=== PATIENT | male | born 1985 | race Two or more races ===

== ENCOUNTER 2016-09-06 08:34 | Emergency (ER) | payer MEDICAID ==
[~2016-09-06] VITALS: Ht 182.9 cm; Wt 77.1 kg
[2016-09-06] MEDS ORDERED: Albuterol ud Inhalation HHN ONE (09:00)
[2016-09-06] MEDS ORDERED: Azithromycin 250mg tab PO ONE (09:00)
[2016-09-06] MEDS ORDERED: PredniSONE 20mg tab ORAL ONE (09:00)
[2016-09-06] MEDS ORDERED: Ipratropium 0.02% Inh Soln 2.5ml UD HHN ONE (09:00)
[2016-09-06 09:26] VITALS: BP 128/85
[2016-09-06] MEDS ORDERED: AZITHROMYCIN250 MG ORAL (10:59)
[2016-09-06] MEDS ORDERED: ZOFRAN ODT4 MG ORAL (10:59)
[2016-09-06] MEDS ORDERED: PHENERGAN6.25 MG/5 ORAL (10:59)
[2016-09-06] MEDS ORDERED: ALBUTEROL SULF8.5 GM INH (10:59)
[2016-09-06 11:07] VITALS: BP 128/85
--- NOTE | 2016-09-07 00:58 | Emergency Room Report ---
History of Present Illness General Chief Complaint: Dyspnea/Respdistress Source: Patient Present Illness HPI Pt with several weeks of worsened dyspnea with wheezing. States has asthma and ran out of inhaler. Not worst attack. Was vomiting last night and feels weak, but able to tolerate fluids today without vomiting. Not on any medications. No productive cough. No flu vaccine. No diarrhea, chest pain, joint pain, sore throat, headache. No dysuria. Allergies: Coded Allergies: No Known Allergies (Unverified , 09/06/16) Patient History Past Medical History: see triage record Social History: Denies: drug use, smoking Reviewed Nursing Documentation: PMH: Agreed, PSxH: Agreed Nursing Documentation-PMH Past Medical History: No History, Except For Hx Asthma: Yes Review of Systems All Other Systems: negative except mentioned in HPI Physical Exam Vital Signs Date Time Temp Pulse Resp B/P Pulse Ox O2 Delivery O2 Flow Rate FiO2 09/06/16 08:47 98.8 77 22 128/85 99 Room Air 09/06/16 09:05 21 Sp02 EP Interpretation: reviewed, normal General Appearance: well appearing, no apparent distress, GCS 15 Head: normocephalic Eyes: bilateral eye PERRL, bilateral eye normal inspection ENT: normal pharynx, moist mucus membranes Neck: supple Respiratory: no accessory muscle use, wheezing, expiration, inspiration Cardiovascular #1: regular rate, rhythm Cardiovascular #2: 2+ radial (R) Gastrointestinal: normal inspection, normal bowel sounds, non tender, no mass, non-distended Musculoskeletal: back normal, gait/station normal, normal range of motion Neurologic: alert, oriented x3, grossly normal Psychiatric: mood/affect normal Skin: normal inspection, warm/dry Medical Decision Making Diagnostic Impression: Primary Impression: Asthmatic bronchitis Qualified Codes: J45.41 - Moderate persistent asthma with (acute) exacerbation Additional Impression: Vomiting ER Course Patient presents with dyspnea and wheezing. Ddx: pneumonia, asthmatic bronchitis, influenza. States needs breathing treatment. O2 sat precludes need for CXR. Will treat with prednisone and breathing treatments. Patient improved. Discussed recent vomiting and offered IV. Declined. Patient stable for outpatient observation and treatment. Last Vital Signs Date Time Temp Pulse Resp B/P Pulse Ox O2 Delivery O2 Flow Rate FiO2 09/06/16 11:07 98.8 77 18 128/85 99 Room Air 21 Status: improved Disposition: HOME, SELF-CARE Condition: Improved Scripts Promethazine/Dextromethorphan (Promethazine-Dm Syrup) 473 Ml Syrup 1 TSP ORAL Q4H Y for For Cough, #118 ML 0 Refills Prov: Paulo Vo M.D. 09/06/16 Azithromycin* (ZITHROMAX*) 250 Mg Tablet 250 MG ORAL DAILY, #4 TAB Prov: Paulo Vo M.D. 09/06/16 Ondansetron Odt* (ZOFRAN ODT*) 4 Mg Tab.rapdis 4 MG ORAL Q8H Y for Nausea & Vomiting, #6 TAB 1 Refill Prov: Paulo Vo M.D. 09/06/16 Albuterol Sulfate* (ALBUTEROL SULFATE MDI*) 8.5 Gm Hfa.aer.ad 2 PUFF INH Q4H, #1 INH 0 Refills Prov: Paulo Vo M.D. 09/06/16 Patient Instructions: Nausea and Vomiting, Adult, Bronchospasm, Adult Additional Instructions: Return if you are not doing well. Paulo Vo M.D. Sep 07, 2016 00:58
== END 2016-09-06 11:08 | disposition home or self-care (01) ==
LOC: EMR 09:00
DX: J45.41 Moderate persistent asthma with (acute) exacerbation (principal); R11.10 Vomiting, unspecified
CPT/HCPCS: 94640; 94664; 99284; Q0144

== ENCOUNTER 2017-02-11 23:27 | Emergency (ER) | payer MEDICAID ==
[~2017-02-11] VITALS: Ht 182.9 cm; Wt 74.8 kg
[~2017-02-11 23:27] MED LIST: ALBUTEROL SULF8.5 GM INH; AZITHROMYCIN250 MG ORAL; PHENERGAN6.25 MG/5 ORAL; ZOFRAN ODT4 MG ORAL
[2017-02-12] MEDS ORDERED: DOXYCYCLINE MO100 MG ORAL (00:20)
[2017-02-12] MEDS ORDERED: IBUPROFEN600 MG ORAL (00:20)
--- NOTE | 2017-02-12 00:20 | Emergency Room Report ---
History of Present Illness General Chief Complaint: Pain Source: Patient Present Illness HPI Is a 31-year-old male with a history of ingrown toenail before. He had to have surgery to remove it before. He presents with increasing swelling and drainage from the right great toe. Tender to palpation. No fever or chills. No nausea vomiting. Has been ongoing for about a week. Drainage was couple days ago. Allergies: Coded Allergies: No Known Allergies (Unverified , 09/06/16) Patient History Past Medical History: see triage record, old chart reviewed Past Surgical History: none Pertinent Family History: none Social History: Denies: smoking Immunizations: other Reviewed Nursing Documentation: PMH: Agreed, PSxH: Agreed Nursing Documentation-PMH Hx Asthma: Yes Review of Systems Eye: Denies: blurred vision, eye pain ENT: Denies: ear pain, nose congestion, throat swelling Respiratory: Denies: cough, shortness of breath Cardiovascular: Denies: chest pain, palpitations Gastrointestinal: Denies: abdominal pain, diarrhea, nausea, vomiting Musculoskeletal: Denies: back pain, joint pain Skin: Denies: rash Neurological: Denies: headache, numbness Endocrine: Denies: increased thirst, increased urine Hematologic/Lymphatic: Denies: easy bruising All Other Systems: negative except mentioned in HPI Physical Exam Vital Signs Date Time Temp Pulse Resp B/P Pulse Ox O2 Delivery O2 Flow Rate FiO2 02/11/17 23:30 98.2 88 14 125/77 94 vitals normal Sp02 EP Interpretation: reviewed, normal General Appearance: well appearing, no apparent distress, alert Head: normocephalic, atraumatic Eyes: bilateral eye EOMI, bilateral eye PERRL ENT: hearing grossly normal, normal pharynx Neck: full range of motion, supple, no meningismus Respiratory: chest non-tender, lungs clear, normal breath sounds Cardiovascular #1: regular rate, rhythm, no murmur Gastrointestinal: normal bowel sounds, non tender, no mass, no organomegaly, no bruit, non-distended Musculoskeletal: back normal, gait/station normal, normal range of motion, other - left great toe: ingrown nail medially with thicken skin Psychiatric: mood/affect normal Skin: warm/dry Procedures Additional Procedure Procedure Narrative Procedure: Matrextomy Indication: Ingrown toenail Description: Area clean with chlorhexidine. I did a digital block with 1% lidocaine without epinephrine. A total of 3 mL injected. I remove it of the ingrown toenail with a Maegan. Patient tolerated procedure without a problem. Medical Decision Making Diagnostic Impression: Primary Impression: Ingrown left big toenail ER Course patient with an infected of ingrown toenail. We'll discharge on antibiotics. Will followup with his j[employer] hedd[employer] tier. No evidence of deep infection. Last Vital Signs Date Time Temp Pulse Resp B/P Pulse Ox O2 Delivery O2 Flow Rate FiO2 02/11/17 23:30 98.2 88 14 125/77 94 Status: improved Disposition: HOME, SELF-CARE Condition: Stable Scripts Ibuprofen* (MOTRIN*) 600 Mg Tablet 600 MG ORAL Q6H Y for For Pain, #30 TAB Prov: RYAN PERSON M.D. 02/12/17 Doxycycline Monohydrate* (DOXYCYCLINE MONOHYDRATE*) 100 Mg Capsule 100 MG ORAL Q12H, #14 CAP 0 Refills Prov: RYAN PERSON M.D. 02/12/17 Additional Instructions: follow up with your doctor in 7 days. Return if worse. RYAN PERSON M.D. Feb 12, 2017 00:20
[2017-02-12 00:30] VITALS: BP 125/77
== END 2017-02-12 00:30 | disposition home or self-care (01) ==
LOC: EMR 23:40
DX: L60.0 Ingrowing nail (principal); J45.909 Unspecified asthma, uncomplicated

== ENCOUNTER 2017-03-16 18:16 | Emergency (ER) | payer MEDICAID ==
[~2017-03-16] VITALS: Ht 182.9 cm; Wt 78.0 kg
[~2017-03-16 18:16] MED LIST changes: +DOXYCYCLINE MO100 MG ORAL; +IBUPROFEN600 MG ORAL
--- NOTE | 2017-03-16 18:55 | Emergency Room Report ---
History of Present Illness General Chief Complaint: Toothache Source: Patient Present Illness HPI 31-year-old male presents to the emergency department complaining of 10 out of 10 in severity toothache to the molar of the right lower jaw. Patient states pain has been times one day. Patient reports that he has had that tooth broken off at the gumline for almost a year. Patient denies fevers or chills reports some swelling to the right lower cheek. Patient also reports exacerbation of his asthma and that he is out of his inhaler. pt reports wheezing, denies SOB, or recent illness. pt. states he has not seen a dentist in quite some time. pt. denies trauma or fall. Pt. reports nausea, denies vomiting or abdominal pain/ tenderness. Denies CP, Palpitations, LOC, AMS, dizziness, Changes in Vision, Sensation, paresthesias, or a sudden severe headache. Allergies: Coded Allergies: No Known Allergies (Unverified , 09/06/16) Patient History Past Medical History: see triage record Past Surgical History: none Pertinent Family History: none Immunizations: UTD Reviewed Nursing Documentation: PMH: Agreed, PSxH: Agreed Nursing Documentation-PMH Hx Asthma: Yes Review of Systems All Other Systems: negative except mentioned in HPI Physical Exam Vital Signs Date Time Temp Pulse Resp B/P Pulse Ox O2 Delivery O2 Flow Rate FiO2 03/16/17 18:22 98.2 85 16 118/80 98 Room Air Sp02 EP Interpretation: reviewed, normal General Appearance: no apparent distress, alert, GCS 15, non-toxic Head: normocephalic, atraumatic Eyes: bilateral eye PERRL, bilateral eye normal inspection ENT: hearing grossly normal, normal pharynx, no angioedema, normal voice, other - swelling to the lower right jaw line, no palpable fluctuance, tooth number 31 is broken off at the gum line. Neck: full range of motion, supple/symm/no masses Respiratory: lungs clear, normal breath sounds, speaking full sentences, wheezing - scant bilateral wheezes Cardiovascular #1: regular rate, rhythm, no edema Musculoskeletal: back normal, gait/station normal, normal range of motion, non- tender Neurologic: alert, oriented x3, responsive, motor strength/tone normal, sensory intact, speech normal Psychiatric: judgement/insight normal, memory normal, mood/affect normal Skin: normal color, no rash, warm/dry, well hydrated Lymphatic: no adenopathy Medical Decision Making PA Attestation Dr. Francisco is my supervising Physician whom patient management has been discussed with. Diagnostic Impression: Primary Impression: Dental infection Additional Impressions: Medication refill History of asthma ER Course 31-year-old male presents to the emergency department complaining of 10 out of 10 in severity toothache to the molar of the right lower jaw. Patient states pain has been times one day. Patient reports that he has had that tooth broken off at the gumline for almost a year. Patient denies fevers or chills reports some swelling to the right lower cheek. Patient also reports exacerbation of his asthma and that he is out of his inhaler. pt reports wheezing, denies SOB, or recent illness. pt. states he has not seen a dentist in quite some time. pt. denies trauma or fall. Pt. reports nausea, denies vomiting or abdominal pain/ tenderness. Denies CP, Palpitations, LOC, AMS, dizziness, Changes in Vision, Sensation, paresthesias, or a sudden severe headache. Ddx considered but are not limited to cellulitis, dental abscess, orbital cellulitis, d/l tooth, dental pain. trigeminal neuralgia, asthma exacerbation, pneumonia Vital signs: are WNL, pt. is afebrile H&PE are most consistent with dental abscess. swelling to the lower right jaw line, no palpable fluctuance, tooth number 31 is broken off at the gum line. ORDERS: none required at this time, the diagnosis is clinical ED INTERVENTIONS: None required at this time. pt. is given list of dental and primary care clinics for follow up. D/w pt. to return to ED with worsening or new symptoms. DISCHARGE: At this time pt. is stable for d/c to home. Will provide printed patient care instructions, and any necessary prescriptions. Care plan and follow up instructions have been discussed with the patient prior to discharge. Last Vital Signs Date Time Temp Pulse Resp B/P Pulse Ox O2 Delivery O2 Flow Rate FiO2 03/16/17 18:22 98.2 85 16 118/80 98 Room Air Disposition: HOME, SELF-CARE Condition: Stable Scripts Ondansetron Odt* (ZOFRAN ODT*) 4 Mg Tab.rapdis 4 MG ORAL Q6H Y for Nausea & Vomiting, #10 TAB Prov: Callie Mckinley P.Stephanie 03/16/17 Naproxen* (NAPROSYN*) 500 Mg Tablet 500 MG ORAL TWICE A DAY for 10 Days, #20 TAB Prov: Callie Mckinley 03/16/17 Albuterol Sulfate* (ALBUTEROL SULFATE MDI*) 8.5 Gm Hfa.aer.ad 2 PUFF INH Q6H, #1 INH 0 Refills Prov: Callie Mckinley 03/16/17 Amoxicillin* (AMOXIL*) 500 Mg Capsule 500 MG ORAL BID for 7 Days, #14 CAP Prov: Callie Mckinley 03/16/17 Patient Instructions: Dental Abscess, [id number], Medicine Refill at the Emergency Department Additional Instructions: Take medications as directed. Follow up with a Dentist in 3- 5 days, please refer to list of dental clinics if you do not already have a dentist. Also: Follow up with a Primary Care Provider in 3-5 days, even if your symptoms have resolved. --Please review list of primary care clinics, if you do not already have a primary care provider Return sooner to ED if new symptoms occur, or current symptoms become worse. - Please note that this Emergency Department Report was dictated using [employer] fingerprint examiner technology software, occasionally this can lead to erroneous entry secondary to interpretation by the dictation equipment. Callie Mckinley Mar 16, 2017 18:55
[2017-03-16] MEDS ORDERED: ALBUTEROL SULF8.5 GM INH (19:00)
[2017-03-16] MEDS ORDERED: NAPROSYN500 M1 ORAL (19:00)
[2017-03-16] MEDS ORDERED: AMOXICILLIN500 MG ORAL (19:00)
[2017-03-16] MEDS ORDERED: ZOFRAN ODT4 MG ORAL (19:00)
[2017-03-16 19:07] VITALS: BP 118/80
[2017-03-16 19:15] VITALS: BP 118/80
== END 2017-03-16 20:12 | disposition home or self-care (01) ==
LOC: EMR 18:52
DX: K04.7 Periapical abscess without sinus (principal); Z76.0 Encounter for issue of repeat prescription; J45.909 Unspecified asthma, uncomplicated
CPT/HCPCS: 99284

== ENCOUNTER 2017-04-14 21:45 | Emergency (ER) | payer MEDICAID ==
[~2017-04-14] VITALS: Ht 177.8 cm; Wt 59.0 kg
[~2017-04-14 21:45] MED LIST changes: +AMOXICILLIN500 MG ORAL; +NAPROSYN500 M1 ORAL
[2017-04-14 22:04] VITALS: BP 120/70
[2017-04-14] MEDS ORDERED: HYDROCODON-ACE1 EA15 ORAL (22:07)
[2017-04-14] MEDS ORDERED: AMOXICILLIN500 MG ORAL (22:07)
--- NOTE | 2017-04-14 22:07 | Emergency Room Report ---
History of Present Illness General Chief Complaint: Toothache Source: Patient Present Illness HPI Is a 31-year-old male who presents with chief complaint of right jaw pain and toothache. His been ongoing for the last few days. He was here about a month ago for the same thing. Was placed on antibiotics which resolved his symptoms after couple days. He said he lost antibiotics. He denies any fever or chills. Pain is throbbing in nature. 02/20. He called a dental place her ready. Hasn't made an appointment yet. No nausea no vomiting. No fever or chills. No swelling. Allergies: Coded Allergies: No Known Allergies (Unverified , 09/06/16) Patient History Past Medical History: see triage record, old chart reviewed Past Surgical History: none Pertinent Family History: none Social History: Denies: smoking Immunizations: other Reviewed Nursing Documentation: PMH: Agreed, PSxH: Agreed Nursing Documentation-[facility] Past Medical History: No Stated History Hx Asthma: Yes Review of Systems Eye: Denies: eye pain, blurred vision ENT: Denies: ear pain, nose congestion, throat swelling Respiratory: Denies: cough, shortness of breath Cardiovascular: Denies: chest pain, palpitations Gastrointestinal: Denies: abdominal pain, diarrhea, nausea, vomiting Musculoskeletal: Denies: back pain, joint pain Skin: Denies: rash Neurological: Denies: headache, numbness Endocrine: Denies: increased thirst, increased urine Hematologic/Lymphatic: Denies: easy bruising All Other Systems: negative except mentioned in HPI Physical Exam Vital Signs Date Time Temp Pulse Resp B/P (MAP) Pulse Ox O2 Delivery O2 Flow Rate FiO2 04/14/17 21:54 98.4 78 16 120/70 98 Room Air vitals normal Sp02 EP Interpretation: reviewed, normal General Appearance: well appearing, no apparent distress, alert Head: normocephalic, atraumatic Eyes: bilateral eye PERRL, bilateral eye EOMI ENT: hearing grossly normal, normal pharynx, other - Poor dentition. His right lower wisdom tooth is down to the now. Has dental decay. Neck: full range of motion, supple, no meningismus Respiratory: chest non-tender, lungs clear, normal breath sounds Cardiovascular #1: regular rate, rhythm, no murmur Gastrointestinal: normal bowel sounds, non tender, no mass, no organomegaly, no bruit, non-distended Musculoskeletal: back normal, gait/station normal, normal range of motion Psychiatric: mood/affect normal Skin: warm/dry Medical Decision Making Diagnostic Impression: Primary Impression: Dental caries ER Course Patient with a dental infection. No evidence of abscess that can be I&D. We' ll put on antibiotics. We'll discharge him to see a dentist. Last Vital Signs Date Time Temp Pulse Resp B/P (MAP) Pulse Ox O2 Delivery O2 Flow Rate FiO2 04/14/17 21:54 98.4 78 16 120/70 98 Room Air Status: improved Disposition: HOME, SELF-CARE Condition: Stable Scripts Hydrocodone/Acetaminophen 5-325* (HYDROCODONE/ACETAMINOPHEN 5-325*) 1 Each Tablet 1 TAB ORAL Q6H Y for For Pain, #10 TAB 0 Refills Prov: RYAN PERSON M.D. 04/14/17 Amoxicillin* (AMOXIL*) 500 Mg Capsule 500 MG ORAL THREE TIMES A DAY, #21 CAP Prov: RYAN PERSON M.D. 04/14/17 Patient Instructions: Dental Pain Additional Instructions: Followup with your dentist RAYMOND. Return if symptom worsen. RYAN PERSON M.D. Apr 14, 2017 22:07
[2017-04-14] MEDS ORDERED: Norco 5mg/325mg tab ORAL ONE (22:15)
[2017-04-14 22:22] VITALS: BP 120/70
== END 2017-04-14 22:22 | disposition home or self-care (01) ==
LOC: EMR 21:59
DX: K02.9 Dental caries, unspecified (principal); J45.909 Unspecified asthma, uncomplicated
CPT/HCPCS: 99284

== ENCOUNTER 2017-08-09 14:29 | Emergency (ER) | payer MEDICAID ==
[~2017-08-09] VITALS: Ht 182.9 cm; Wt 79.4 kg
[~2017-08-09 14:29] MED LIST changes: +HYDROCODON-ACE1 EA15 ORAL
[2017-08-09] MEDS ORDERED: PREDNISONE2.5 MG ORAL (14:50)
[2017-08-09] MEDS ORDERED: ALBUTEROL SULF8.5 GM INH (14:58)
[2017-08-09] MEDS ORDERED: COMPACT COMPRE1 EACH MC (14:58)
[2017-08-09] MEDS ORDERED: ALBUTEROL2.5 MG/3 M HHN (14:58)
[2017-08-09] MEDS ORDERED: PREDNISONE20 MG ORAL (14:58)
[2017-08-09] MEDS: Ipratropium 0.02% Inh Soln 2.5ml UD HHN SCH ×3 (15:03→15:19)
[2017-08-09] MEDS: Albuterol ud Inhalation HHN SCH ×3 (15:03→15:20)
--- NOTE | 2017-08-09 15:08 | Emergency Room Report ---
History of Present Illness General Chief Complaint: Upper Respiratory Illness Source: Patient Present Illness HPI 32-year-old male with pmhx asthma, intermittent smoker p/w cough for 3 weeks. Pt states cough is productive, with clear non bloody sputum. Also states that his shortness of breath, worse at nighttime. Denies fever chills or chest pain. Denies runny nose or myalgias. No sick contacts or recent travel. Patient states that his asthma is usually will manage, but states that it only gets worse in the winter time, does not have an inhaler at home Allergies: Coded Allergies: No Known Allergies (Unverified , 09/06/16) Patient History Past Medical History: see triage record Past Surgical History: none Pertinent Family History: none Reviewed Nursing Documentation: PMH: Agreed, PSxH: Agreed Nursing Documentation-PMH Hx Asthma: Yes - Bronchitis, Pneumonia Review of Systems All Other Systems: negative except mentioned in HPI Physical Exam Vital Signs Date Time Temp Pulse Resp B/P (MAP) Pulse Ox O2 Delivery O2 Flow Rate FiO2 08/09/17 14:45 98.1 72 22 97 Room Air Sp02 EP Interpretation: reviewed, normal General Appearance: alert, GCS 15, non-toxic, mild distress Head: normocephalic, atraumatic Eyes: bilateral eye normal inspection, bilateral eye PERRL, bilateral eye EOMI ENT: normal ENT inspection, normal pharynx, normal voice, moist mucus membranes Neck: normal inspection, full range of motion, supple Respiratory: other - mild exp wheezing b/l Cardiovascular #1: normal inspection, regular rate, rhythm, normal capillary refill Cardiovascular #2: 2+ radial (R), 2+ radial (L) Gastrointestinal: normal inspection, non tender, soft, non-distended, no guarding Genitourinary: no CVA tenderness Musculoskeletal: normal inspection, back normal, normal range of motion, non- tender Neurologic: normal inspection, alert, oriented x3, responsive, motor strength/ tone normal, sensory intact, normal gait, speech normal Psychiatric: normal inspection, judgement/insight normal, memory normal Skin: normal inspection, normal color, no rash, warm/dry, well hydrated, normal turgor Medical Decision Making Diagnostic Impression: Primary Impression: Upper respiratory infection Additional Impression: Asthma ER Course 32-year-old male with history of asthma p/w SOB DDX: Asthma exacerbation, upper respiratory infection/viral syndrome Plan: Combivent nebulizer treatment x 3, steroids ER Course: Patient has been treated with combivent x 3, steroids, antibiotics. Patient's overall respiratory status has improved in ED. Patient states improvement of symptoms. Patient continues to speak in complete sentences and is not in respiratory distress. Repeat lung auscultation: good air entry with minimal/no wheezing. Disposition: Patient will be discharged to home with course of steroids, albuterol inhaler Strict precautions are discussed with patient on when to emergently return to the ED including: persistent or worsening SOB, chest pain, fever, chills, which could indicate severe illness. Patient verbalized understanding. Patient is to follow up with her/his PMD within 5 days. Patient agrees with plan. Please note that this Emergency Department Report was dictated using [employer] developer intern technology software, occasionally this can lead to erroneous entry secondary to interpretation by the dictation equipment. Last Vital Signs Date Time Temp Pulse Resp B/P (MAP) Pulse Ox O2 Delivery O2 Flow Rate FiO2 08/09/17 14:45 98.1 72 22 97 Room Air Disposition: HOME, SELF-CARE Condition: Improved Scripts Nebulizer (Compact Compressor Nebulizer) 1 Each Each EA , #1 0 Refills Prov: Nathan London.Sebas 08/09/17 Prednisone* (PREDNISONE*) 20 Mg Tablet 40 MG ORAL DAILY for 5 Days, #10 TAB 0 Refills Prov: Nathan London M.D. 08/09/17 Albuterol Sulfate* (ALBUTEROL SULFATE HHN*) 2.5 Mg/3 Ml Vial.neb 2.5 MG HHN Q4H Y for Shortness of Breath, #25 VIAL 0 Refills Prov: Nathan London M.D. 08/09/17 Albuterol Sulfate* (ALBUTEROL SULFATE MDI*) 8.5 Gm Hfa.aer.ad 2 PUFF INH Q4H Y for cough/wheezing, #1 EA 0 Refills Prov: Nathan London.DRene 08/09/17 Patient Instructions: Upper Respiratory Infection, Adult, Asthma, Adult, Easy- to-Read Nathan London M.D. Aug 09, 2017 15:08
[2017-08-09] MEDS ORDERED: TESSALON PERLE100 MG ORAL (15:31)
[2017-08-09 16:45] VITALS: BP 122/72
== END 2017-08-09 16:45 | disposition home or self-care (01) ==
LOC: EMR 15:18
DX: J06.9 Acute upper respiratory infection, unspecified (principal); J45.909 Unspecified asthma, uncomplicated
CPT/HCPCS: 94664; 99283; J7512

== ENCOUNTER 2018-05-01 19:37 | Emergency (ER) | payer MEDICAID ==
[~2018-05-01] VITALS: Ht 182.9 cm; Wt 77.1 kg
[~2018-05-01 19:37] MED LIST changes: +ALBUTEROL2.5 MG/3 M HHN; +COMPACT COMPRE1 EACH MC; +PREDNISONE2.5 MG ORAL; +PREDNISONE20 MG ORAL; +TESSALON PERLE100 MG ORAL
[2018-05-01 19:55] VITALS: BP 105/65
[2018-05-01] MEDS ORDERED: Albuterol/Ipratropium 3ml neb HHN ONE (20:15)
--- NOTE | 2018-05-01 20:37 | Emergency Room Report ---
History of Present Illness General Chief Complaint: Asthma Source: Patient Present Illness HPI Patient is a 32-year-old male presented after increased difficulty breathing. Patient gradual onset of symptoms. He had prior history of asthma. Patient reports smoking once a day. The patient was having increased activity. He denies any fever. He had nonproductive cough. Allergies: Coded Allergies: No Known Allergies (Unverified , 09/06/16) Patient History Past Medical History: see triage record Reviewed Nursing Documentation: PMH: Agreed; PSxH: Agreed Nursing Documentation-PMH Hx Asthma: Yes - Bronchitis, Pneumonia Review of Systems All Other Systems: negative except mentioned in HPI Physical Exam Vital Signs Date Time Temp Pulse Resp B/P (MAP) Pulse Ox O2 Delivery O2 Flow Rate FiO2 05/01/18 19:40 98.4 83 18 134/77 97 Room Air 98.4 05/01/18 20:10 21 General Appearance: well appearing, no apparent distress, alert, GCS 15, non- toxic Head: normocephalic, atraumatic ENT: hearing grossly normal, normal voice Neck: full range of motion, supple Respiratory: no respiratory distress, speaking full sentences, wheezing Cardiovascular #1: normal inspection, regular rate, rhythm Gastrointestinal: normal inspection Musculoskeletal: normal inspection, no calf tenderness Neurologic: normal inspection, alert, oriented x3, responsive, neuropsychiatrist III-XII nml as tested, normal gait Psychiatric: mood/affect normal Skin: no rash Medical Decision Making Diagnostic Impression: Primary Impression: Asthmatic bronchitis ER Course The patient presented for cough and difficulty breathing. Difficult differential diagnosis included bronchitis, pneumonia, asthma, foreign body, pertussis among others. The patient was given breathing treatments with with improvement in respiratory status. A repeat exam showed diminished wheezing. The patient was given prescription for oral steroids as well as albuterol . Patient was advised smoking cessation. Patient was advised followup with primary care physician for reevaluation one to 2 days. Patient was to return for increased productive cough, hemoptysis, increased difficulty breathing or other concerns Last Vital Signs Date Time Temp Pulse Resp B/P (MAP) Pulse Ox O2 Delivery O2 Flow Rate FiO2 05/01/18 20:19 74 20 100 Room Air 21 05/01/18 19:55 98.4 105/65 98.4 Status: improved Disposition: HOME, SELF-CARE Condition: Stable Scripts Prednisone* (PREDNISONE*) 20 Mg Tablet 40 MG ORAL DAILY for 5 Days, #10 TAB 0 Refills Prov: Thomas Griffin MD 05/01/18 Albuterol Sulfate* (ALBUTEROL SULFATE MDI*) 8.5 Gm Hfa.aer.ad 2 PUFF INH Q4H PRN for cough/wheezing, #1 EA 0 Refills Prov: Thomas Griffin MD 05/01/18 Thomas Griffin MD May 01, 2018 20:36
[2018-05-01] MEDS ORDERED: PREDNISONE20 MG ORAL (20:41)
[2018-05-01] MEDS ORDERED: ALBUTEROL SULF8.5 GM INH (20:41)
== END 2018-05-01 20:50 | disposition home or self-care (01) ==
LOC: EMR 20:47
DX: J45.901 Unspecified asthma with (acute) exacerbation (principal)
CPT/HCPCS: 94640; 94664; 99284; J7512; J7620

== ENCOUNTER 2018-06-24 07:39 | Emergency (ER) | payer MEDICAID ==
[~2018-06-24] VITALS: Ht 182.9 cm; Wt 74.8 kg
[2018-06-24 07:51] VITALS: BP 141/83
--- NOTE | 2018-06-24 08:14 | Emergency Room Report ---
History of Present Illness General Chief Complaint: Skin Rash/Abscess Source: Patient Present Illness HPI Patient presents with complaints of rash diffusely Started yesterday Patient has itching with this denies any fevers denies any chest pain or shortness of breath Denies any cough denies any vomiting or diarrhea Patient is unclear exactly what could've started the rash denies any new medications denies any change in sleeping habits Allergies: Coded Allergies: No Known Allergies (Unverified , 09/06/16) Patient History Past Medical History: see triage record Pertinent Family History: none Reviewed Nursing Documentation: PMH: Agreed; PSxH: Agreed Nursing Documentation-PMH Past Medical History: No History, Except For Hx Asthma: Yes - Bronchitis, Pneumonia Review of Systems All Other Systems: negative except mentioned in HPI Physical Exam Vital Signs Date Time Temp Pulse Resp B/P (MAP) Pulse Ox O2 Delivery O2 Flow Rate FiO2 06/24/18 07:40 97.3 68 18 141/83 99 Room Air Sp02 EP Interpretation: reviewed, normal General Appearance: well appearing, no apparent distress Head: normocephalic, atraumatic Eyes: bilateral eye PERRL, bilateral eye EOMI ENT: hearing grossly normal, normal pharynx, TMs + canals normal, uvula midline Neck: full range of motion, supple, no meningismus, no bony tend Respiratory: lungs clear, normal breath sounds, no rhonchi, no respiratory distress, no retraction, no accessory muscle use Cardiovascular #1: normal peripheral pulses, regular rate, rhythm, no edema, no gallop, no JVD, no murmur Gastrointestinal: normal bowel sounds, non tender, soft, no mass, no organomegaly, non-distended, no guarding, no hernia, no pulsatile mass, no rebound Genitourinary: no CVA tenderness Musculoskeletal: normal inspection Neurologic: oriented x3, responsive, engineering coordinator III-XII nml as tested, motor strength/ tone normal, sensory intact Psychiatric: mood/affect normal Skin: other - Patient has urticarial rash involving the chest back, upper arm area, no obvious dermatomal spread, no petechiae Lymphatic: normal inspection, no adenopathy Medical Decision Making Diagnostic Impression: Primary Impression: Rash and other nonspecific skin eruption ER Course Given the exam there is not a specific Ideology of the rash no obvious airway involvement patient is symptomatically treated at this time And is stable for close outpatient follow-up Last Vital Signs Date Time Temp Pulse Resp B/P (MAP) Pulse Ox O2 Delivery O2 Flow Rate FiO2 06/24/18 07:51 97.3 18 141/83 99 Room Air 06/24/18 07:40 68 Status: improved Disposition: HOME, SELF-CARE Condition: Improved Scripts Famotidine (PEPCID AC) 20 Mg Tablet 20 MG PO DAILY for 7 Days, TAB Prov: Felipe Tejada DO 06/24/18 Diphenhydramine Hcl* (BENADRYL*) 25 Mg Capsule 25 MG ORAL Q6H PRN for Itching for 7 Days, CAP Prov: Felipe Tejada DO 06/24/18 Prednisone* (PREDNISONE*) 20 Mg Tablet 20 MG ORAL BID, #10 TAB Prov: Felipe Tejada DO 06/24/18 Referrals: STAR OJEDA,REFERRING (PCP) Additional Instructions: Patient is provided with the discharge instructions notified to follow up with primary doctor in the next 2-3 days otherwise return to the er with any worsening symptoms. Please note that this report is being documented using [employer] Trader technology. This can lead to erroneous entry secondary to incorrect interpretation by the dictating instrument. Felipe Tejada DO Jun 24, 2018 08:14
[2018-06-24] MEDS ORDERED: PREDNISONE20 MG ORAL (08:15)
[2018-06-24] MEDS ORDERED: PEPCID AC20 M2 PO (08:15)
[2018-06-24] MEDS ORDERED: BENADRYL25 MG ORAL (08:15)
[2018-06-24 08:24] VITALS: BP 141/83
== END 2018-06-24 08:23 | disposition home or self-care (01) ==
LOC: EMR 07:53
DX: R21 Rash and other nonspecific skin eruption (principal)
CPT/HCPCS: 99282; J7512

== ENCOUNTER 2018-09-12 17:03 | Emergency (ER) | payer MEDICAID ==
[~2018-09-12] VITALS: Ht 182.9 cm; Wt 77.1 kg
[~2018-09-12 17:03] MED LIST changes: +BENADRYL25 MG ORAL; +PEPCID AC20 M2 PO
--- NOTE | 2018-09-12 17:06 | NUR ---
ED Nurse Note: Patient walked into ED from home, c/o right hand pain, patient reports that he hit the wall and hit his hand about 2 weeks ago. a/o x4, ambulatory
[2018-09-12] MEDS ORDERED: NKM (17:10)
--- NOTE | 2018-09-12 17:22 | Emergency Room Report ---
History of Present Illness General Chief Complaint: Upper Extremity Injury Source: Patient Present Illness HPI 33-year-old male patient presents the ER complaining of right hand pain times 1 month. Reports that a month ago "around [place]" he punched a wall. Reports mild swelling and pain symptoms intermittently since that time. Reports he decided to come to the ER today because the pain symptoms increased with movement. Reports he is left-hand dominant. Reports not taking medication for relief of symptoms. Reports he has not had any imaging done. Denies numbness or tingling. Denies other aggravating or relieving factors. Reports that he reinjured the hand when he hit a dresser 2 weeks ago. Allergies: Coded Allergies: No Known Allergies (Unverified , 09/06/16) Patient History Past Medical History: see triage record Reviewed Nursing Documentation: PMH: Agreed; PSxH: Agreed Nursing Documentation-PMH Past Medical History: No History, Except For Hx Asthma: Yes - Bronchitis, Pneumonia Review of Systems All Other Systems: negative except mentioned in HPI Physical Exam Vital Signs Date Time Temp Pulse Resp B/P (MAP) Pulse Ox O2 Delivery O2 Flow Rate FiO2 09/12/18 17:06 98.4 75 16 121/83 99 Room Air Sp02 EP Interpretation: reviewed, normal General Appearance: well appearing, no apparent distress, alert, GCS 15, non- toxic Head: normocephalic, atraumatic Eyes: bilateral eye normal inspection, bilateral eye PERRL ENT: hearing grossly normal, normal pharynx, no angioedema, normal voice, uvula midline, moist mucus membranes Neck: full range of motion Respiratory: lungs clear, normal breath sounds, no rhonchi, no respiratory distress, no accessory muscle use, no wheezing, speaking full sentences Cardiovascular #1: regular rate, rhythm, no edema Musculoskeletal: back normal, digits/nails normal, gait/station normal, normal range of motion, swelling - Mild on dorsum of right hand, other - Able to make a fist,NVI, cap refill less than 2 seconds, no ecchymosis, no erythema, no warmth to touch, tender - Dorsum of fifth metacarpal proximal to the MCP joint Neurologic: alert, oriented x3, responsive, motor strength/tone normal, sensory intact Psychiatric: mood/affect normal Skin: no rash Lymphatic: no adenopathy Medical Decision Making PA Attestation Dr. Griffin is my supervising Physician whom patient management has been discussed with. Diagnostic Impression: Primary Impression: Hand contusion ER Course Pt. presents to the ED c/o right hand pain times 1 month. Ddx considered but are not limited to fracture, sprain, strain, contusion, dislocation. No erythema, no warmth to touch, no fever, nontoxic appearing, low suspicion for septic joint. Soft compartments, no pulselessness, no pallor, no paresthesias, low suspicion for compartment syndrome at this time. Vital signs: are WNL, pt. is afebrile Ordered X-ray and pain medication. ER COURSE Provided with pain medication. An X-ray of the right hand shows no acute fracture per the preliminary reading. Likely contusion causing pain symptoms. KEVIN wrap applied to right hand. Checked afterwards by me showing good alignment and NVI. Patient instructed on RICE method: rest, ice, compression, elevation. Patient instructed on rest, ice and heat. Patient instructed to be WBAT Contact information for orthopedic urgent care provided, follow-up with urgent care if unable to followup with primary care provider and get referral to acoustic intelligence specialist. Followup with primary care provider. Discuss referral to ortho/pain management/ PT as needed. Discuss further imaging with MRI/CT as needed. DISCHARGE: -Rx provided for Ibuprofen for pain symptoms. At this time pt. is stable for d/c to home. Patient is resting comfortably, in no acute distress, nontoxic appearing, talking without difficulty. Will provide printed patient care instructions, and any necessary prescriptions. Patient instructed to follow with primary care provider in 3 - 5 days and to request further follow-up as needed. Care plan and follow up instructions have been discussed with the patient prior to discharge. Take medications as directed. Patient questions asked and answered. Patient reports understanding and agreement to treatment plan. ER precautions given, patient instructed to return to ER immediately for any new or worsening of symptoms. - Please note that this Emergency Department Report was dictated using [employer] medical transcriptionist technology software, occasionally this can lead to erroneous entry secondary to interpretation by the dictation equipment. Other X-Ray Diagnostic Results Other X-Ray Diagnostic Results : X-Ray ordered: right hand # of Views/Limited Vs Complete: 3 View Indication: Pain EP Interpretation: Yes PA Xray: Interpretation reviewed, by supervising MD, and agrees with findings. Interpretation: no dislocation, no soft tissue swelling, no fractures Impression: No acute disease PA Scribe Text Cam Garcia PA-C Last Vital Signs Date Time Temp Pulse Resp B/P (MAP) Pulse Ox O2 Delivery O2 Flow Rate FiO2 09/12/18 17:06 98.4 75 16 121/83 99 Room Air Status: improved Disposition: HOME, SELF-CARE Condition: Stable Scripts Ibuprofen* (MOTRIN*) 600 Mg Tablet 600 MG ORAL Q8H PRN for For Pain, #30 TAB 0 Refills Prov: Jake Garcia 09/12/18 Patient Instructions: Hand Contusion, [id number] Additional Instructions: Patient instructed to follow up with primary care provider and discuss further referral to orthopedics/physical therapy/pain management as needed. If unable to followup with PCP, followup with orthopedic urgent care in 5-7 days , call to schedule appointment. Patient instructed on RICE method: rest, ice, compression, elevation. Patient instructed to WBAT. Take medications as directed. Patient questions asked and answered. ER precautions given, patient instructed to return to ER immediately for any new or worsening of symptoms. [facility] [address] [facility] [address] [facility], [address] [email or web address] Jake Garcia Sep 12, 2018 17:22
[2018-09-12 17:35] VITALS: BP 121/83
[2018-09-12] MEDS ORDERED: IBUPROFEN600 MG ORAL (18:08)
--- NOTE | 2018-09-12 18:14 | NUR ---
ED Nurse Note: Pt is cleared for discharge per ER PA Discharge instrcution/paper/ prescription given and explained to the patient, patient verbalized understanding. pt is alert and oriented x4, ambulated out of ED steady gait with all belongigns. pt is stable for DC. VSS. pt ID band removed.
[2018-09-12 19:09] VITALS: BP 121/83
--- NOTE | 2018-09-13 09:13 | Diagnostic Imaging Report ---
Indication: Right hand pain Technique: 3 views right hand Comparison: none Findings: No acute fractures. No dislocations. The joint spaces are preserved Impression: Negative
== END 2018-09-12 18:14 | disposition home or self-care (01) ==
LOC: EMR 17:33
DX: S60.221A Contusion of right hand, initial encounter (principal); W22.01XA Walked into wall, initial encounter; Y92.89 Other specified places as the place of occurrence of the external cause; J45.909 Unspecified asthma, uncomplicated; F17.200 Nicotine dependence, unspecified, uncomplicated
CPT/HCPCS: 99283

== ENCOUNTER 2018-10-05 21:45 | Emergency (ER) | payer MEDICAID ==
[~2018-10-05] VITALS: Ht 182.9 cm; Wt 77.1 kg
[~2018-10-05 21:45] MED LIST changes: +NKM
--- NOTE | 2018-10-05 21:55 | NUR ---
ED Nurse Note: Patient walk in c/o right shoulder pain for 2 days. Patient states he was carrying a heavy object and felt his shoulder become dislocated. Patient states he put the shoulder back in place but still has pain 03/23. Per pt he took motrin earlier this morning to alleviate pain, did not help
[2018-10-05 21:57] VITALS: BP 133/65
[2018-10-05] MEDS ORDERED: MOBIC15 MG ORAL (22:11)
[2018-10-05] MEDS ORDERED: HYDROCODON-ACE1 EA15 ORAL (22:11)
--- NOTE | 2018-10-05 22:11 | Emergency Room Report ---
History of Present Illness General Chief Complaint: Upper Extremity Injury Source: Patient Present Illness [facility] This is a 33-year-old male with no past mental history. 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 He presents with right shoulder pain. 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 Patient held onto the furniture. He felt his shoulder dislocated. He said he popped it back himself. It occurred again that same night. Since then he complaining of right shoulder pain. His been taking [id number] medicine without much help. No fever chills but no nausea no vomiting. Worse with movement. No other complaint. Allergies: Coded Allergies: No Known Allergies (Unverified , 09/06/16) Patient History Past Medical History: see triage record, old chart reviewed, asthma Past Surgical History: other Pertinent Family History: none Social History: Denies: smoking Immunizations: other Reviewed Nursing Documentation: PMH: Agreed; PSxH: Agreed Nursing Documentation-PMH Past Medical History: No History, Except For Hx Asthma: Yes - Bronchitis, Pneumonia Review of Systems Eye: Denies: eye pain, blurred vision ENT: Denies: ear pain, nose congestion, throat swelling Respiratory: Denies: cough, shortness of breath Cardiovascular: Denies: chest pain, palpitations Gastrointestinal: Denies: abdominal pain, diarrhea, nausea, vomiting Musculoskeletal: Reports: joint pain; Denies: back pain Skin: Denies: rash Neurological: Denies: headache, numbness Endocrine: Denies: increased thirst, increased urine Hematologic/Lymphatic: Denies: easy bruising All Other Systems: negative except mentioned in HPI Physical Exam Vital Signs Date Time Temp Pulse Resp B/P (MAP) Pulse Ox O2 Delivery O2 Flow Rate FiO2 10/05/18 21:51 98.1 85 16 133/65 98 Room Air vitals normal Sp02 EP Interpretation: reviewed, normal General Appearance: well appearing, no apparent distress, alert Head: normocephalic, atraumatic Eyes: bilateral eye PERRL, bilateral eye EOMI ENT: hearing grossly normal, normal pharynx Neck: full range of motion, supple, no meningismus Respiratory: chest non-tender, lungs clear, normal breath sounds Cardiovascular #1: regular rate, rhythm, no murmur Gastrointestinal: normal bowel sounds, non tender, no mass, no organomegaly, no bruit, non-distended Musculoskeletal: back normal, gait/station normal, normal range of motion, other - Right Shoulder: No deformity. Diffuse tenderness. Sensation over deltoid normal. Psychiatric: mood/affect normal Skin: warm/dry Procedures Splinting Splinting : Consent: Verbal Location: Right shoulder Pre-Made Type: Sling Pre-Proc Neuro Vasc Exam: normal Post-Proc Neuro Vasc Exam: normal Patient Tolerated: Well Complications: None Medical Decision Making Diagnostic Impression: Primary Impression: Right shoulder injury Qualified Codes: S49.91XA - Unspecified injury of right shoulder and upper arm , initial encounter ER Course Patient with right shoulder injury with reported injury or dislocation with reduction by patient. No evidence of any fracture dislocation here. Patient given a sling and pain medication. We'll discharge home with orthopedic follow- up. He said that he does not want to file [employer] paper works. 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 Other X-Ray Diagnostic Results Other X-Ray Diagnostic Results : X-Ray ordered: Right shoulder x-rays # of Views/Limited Vs Complete: 3 View Indication: Pain EP Interpretation: Yes Interpretation: no dislocation, no soft tissue swelling, no fractures Impression: No acute disease Electronically Signed by: Guru Cary MD Last Vital Signs Date Time Temp Pulse Resp B/P (MAP) Pulse Ox O2 Delivery O2 Flow Rate FiO2 10/05/18 21:57 98.1 95 16 133/65 98 Room Air Status: improved Disposition: HOME, SELF-CARE Condition: Stable Scripts Hydrocodone/Acetaminophen 5-325* (HYDROCODONE/ACETAMINOPHEN 5-325*) 1 Each Tablet 1 TAB ORAL Q6H PRN for For Pain, #10 TAB 0 Refills Prov: Guru Cary MD 10/05/18 Meloxicam* (MOBIC*) 15 Mg Tablet 15 MG ORAL DAILY, #30 TAB 0 Refills Prov: Guru Cary MD 10/05/18 Additional Instructions: Follow-up with your doctor in 7 days. Return if symptom worsen. Guru Cary MD Oct 05, 2018 22:11
[2018-10-05] MEDS ORDERED: Norco 5mg/325mg tab ORAL ONE (22:15)
[2018-10-05 22:28] VITALS: BP 133/65
--- NOTE | 2018-10-05 22:28 | NUR ---
ER NURSE NOTE: Patient is cleared to be discharged per ERMD, pt is aox4, on room air, with stable vital signs. pt was given dc and prescription instructions, pt was able to verbalize understanding, pt id band. pt is able to ambulate with steady gait. pt took all belongings.
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
--- NOTE | 2018-10-05 22:34 | NUR ---
Note jordan in EDM - 10/05/18 at 2234 by DARCY ER NURSE NOTE: Patient is cleared to be discharged per ERMD, pt is aox4, on room air, with stable vital signs. pt was given dc and prescription instructions, pt was able to verbalize understanding, pt id band. pt is able to ambulate with steady gait. pt took all belongings.
== END 2018-10-05 22:28 | disposition home or self-care (01) ==
LOC: EMR 22:18
DX: S49.81XA Other specified injuries of right shoulder and upper arm, initial encounter (principal); X50.0XXA Overexertion from strenuous movement or load, initial encounter; Y92.89 Other specified places as the place of occurrence of the external cause
CPT/HCPCS: 29105; 99283

== ENCOUNTER 2019-01-29 12:06 | Emergency (ER) | payer MEDICAID ==
[~2019-01-29] VITALS: Ht 182.9 cm; Wt 74.8 kg
[~2019-01-29 12:06] MED LIST changes: +MOBIC15 MG ORAL
[2019-01-29 12:10] VITALS: BP 127/86
--- NOTE | 2019-01-29 12:47 | Emergency Room Report ---
History of Present Illness General Chief Complaint: Upper Respiratory Illness Source: Medical Record Present Illness HPI 33-year-old male with history of asthma here complaining of asthma exacerbation x2 days after he was exposed to exhaust at work 2 days ago. 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 Denies nausea vomiting, syncope, chest pain, palpitation , cough. Complains of minor shortness of breath and has been using his albuterol inhaler he is here requesting nebulizer treatment. Patient denies all other URI symptoms denies abdominal pain, fever and chills, and all other associated symptoms. Patient is a non-smoker Allergies: Coded Allergies: No Known Allergies (Unverified , 09/06/16) Patient History Past Medical History: see triage record Past Surgical History: unable to obtain Pertinent Family History: none Reviewed Nursing Documentation: PMH: Agreed; PSxH: Agreed Nursing Documentation-PMH Past Medical History: No History, Except For Hx Asthma: Yes - Bronchitis, Pneumonia Review of Systems All Other Systems: negative except mentioned in HPI Physical Exam Vital Signs Date Time Temp Pulse Resp B/P (MAP) Pulse Ox O2 Delivery O2 Flow Rate FiO2 01/29/19 12:09 98.2 69 18 127/86 (100) 96 Room Air Sp02 EP Interpretation: reviewed, normal General Appearance: normal inspection, well appearing, no apparent distress, alert, GCS 15 Head: normocephalic, atraumatic Eyes: bilateral eye normal inspection, bilateral eye PERRL ENT: normal ENT inspection, normal pharynx Neck: normal inspection, full range of motion, supple, thyroid normal, no carotid bruits Respiratory: chest non-tender, lungs clear, normal breath sounds, no rhonchi, no wheezing Cardiovascular #1: normal inspection, regular rate, rhythm, no gallop, no murmur Gastrointestinal: normal inspection, normal bowel sounds, soft, no mass Genitourinary: no CVA tenderness Musculoskeletal: normal inspection, back normal Neurologic: normal inspection, alert, oriented x3, responsive Psychiatric: normal inspection, judgement/insight normal Skin: normal inspection, normal color, no rash, warm/dry Lymphatic: normal inspection, no adenopathy Medical Decision Making PA Attestation All my diagnosis and treatment plans were reviewed ad discussed with my supervising physician Dr. Fernando Diagnostic Impression: Primary Impression: Asthma exacerbation ER Course 33-year-old male with history of asthma here complaining of asthma exacerbation x2 days after he was exposed to exhaust at work 2 days ago. 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 Denies nausea vomiting, syncope, chest pain, palpitation , cough. Complains of minor shortness of breath and has been using his albuterol inhaler he is here requesting nebulizer treatment. Patient denies all other URI symptoms denies abdominal pain, fever and chills, and all other associated symptoms. Patient is a non-smoker Ddx considered but are not limited to: bronchitis, PNA, URI viral, bacterial brochitis , asthma exacerbation Vital signs: are WNL, pt. is afebrile H&PE are most consistent with: Asthma exacerbation ORDERS: Albuterol inhaler, albuterol nebulizer, Medrol Dosepak patient to purchase a nebulizer mask. ED INTERVENTIONS: None required at this time. DISCHARGE: At this time pt. is stable for d/c to home. Will provide printed patient care instructions, and any necessary prescriptions. Care plan and follow up instructions have been discussed with the patient prior to discharge. Follow-up with your primary care provider for better management of asthma. Avoid exposure to irritants and allergens. Wear your mask at work. Last Vital Signs Date Time Temp Pulse Resp B/P (MAP) Pulse Ox O2 Delivery O2 Flow Rate FiO2 01/29/19 12:09 98.2 69 18 127/86 (100) 96 Room Air Disposition: HOME, SELF-CARE Condition: Stable Scripts Methylprednisolone (Methylprednisolone*) 4MG Dspk 4 MG ORAL DIRECTED for 6 Days, #21 EA 0 Refills Day 1: Two tablets before breakfast, one after lunch, one after dinner, and two at bedtime. If started late in the day, take all six tablets at once or divide into two or three doses, unless otherwise directed by prescriber. Day 2: One tablet before breakfast, one after lunch, one after dinner, and two at bedtime Day 3: One tablet before breakfast, one after lunch, one after dinner, and one at bedtime Day 4: One tablet before breakfast, one after lunch, and one at bedtime Day 5: One tablet before breakfast and one at bedtime Day 6: One tablet before breakfast Prov: Sima Pascual 01/29/19 Albuterol Sulfate (VENTOLIN HFA) 18 Gm Hfa.aer.ad 2 PUFFS INH EVERY 6 HOURS, #18 GM 0 Refills Prov: Sima Pascual 01/29/19 Albuterol Sulfate* (ALBUTEROL SULFATE HHN*) 2.5 Mg/3 Ml Vial.neb 3 ML INH Q6H PRN for Shortness of Breath, #30 EA 0 Refills Prov: Sima Pascual 01/29/19 Patient Instructions: Asthma, Adult, Anip-at-Oqip Additional Instructions: Avoid exposure to allergens follow-up with a primary care provider take medication as directed Sima Pascual Jan 29, 2019 12:47
[2019-01-29] MEDS ORDERED: VENTOLIN HFA18 GM INH (12:48)
[2019-01-29] MEDS ORDERED: ALBUTEROL2.5 MG/3 M INH (12:48)
[2019-01-29] MEDS ORDERED: MEDROL DOSEPAK4 MG ORAL (12:48)
[2019-01-29 12:54] VITALS: BP 127/86
== END 2019-01-29 12:54 | disposition home or self-care (01) ==
LOC: EMR 12:50
DX: J45.901 Unspecified asthma with (acute) exacerbation (principal)
CPT/HCPCS: 99282

== ENCOUNTER 2019-08-30 19:31 | Emergency (ER) | payer SELFPAY ==
[~2019-08-30] VITALS: Ht 177.8 cm; Wt 77.1 kg
[~2019-08-30 19:31] MED LIST changes: +ALBUTEROL2.5 MG/3 M INH; +MEDROL DOSEPAK4 MG ORAL; +VENTOLIN HFA18 GM INH
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
[2019-08-30] MEDS ORDERED: Tetanus/Diptheria/Pertussis IM ONE (19:45)
[2019-08-30] MEDS ORDERED: Omnipaue 350mg/ml 100ml vial INJ PRN (19:45)
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
[2019-08-30 19:59] VITALS: BP 140/103
[2019-08-30 20:08] VITALS: BP 143/90
--- NOTE | 2019-08-30 20:13 | NUR ---
Spoke with concrete mixer operator helper [phone] at [facility]- will send officers.
--- NOTE | 2019-08-30 20:20 | NUR ---
ED Nurse Note: pt is c/o px, ZANDRAD notified
--- NOTE | 2019-08-30 20:21 | Diagnostic Imaging Report ---
EXAM: XR Chest, 1 View CLINICAL HISTORY: PAIN TECHNIQUE: Frontal view of the chest. COMPARISON: No relevant prior studies available. FINDINGS: Study limited only to a portable AP view of the chest. Cardiac mediastinal silhouette are unremarkable. Negative for consolidation, pneumothorax or pleural fluid collections.
[2019-08-30 20:25] LABS: BASOPHILS % (AUTO) 0.6 % (0.0-2.0); EOSINOPHILS % (AUTO) 0.3 % (0.0-3.0); HEMATOCRIT 43.6 % (42.0-52.0); HEMOGLOBIN 14.8 G/DL (14.2-18.0); LYMPHOCYTES % (AUTO) 12.5 % (20.0-45.0); MEAN CORPUSCULAR VOLUME 92 FL (80-99); MONOCYTES % (AUTO) 5.7 % (1.0-10.0); NEUTROPHILS % (AUTO) 80.9 % (45.0-75.0); PLATELET COUNT 332 K/UL (150-450); RED BLOOD COUNT 4.73 M/UL (4.70-6.10); WHITE BLOOD COUNT 15.1 K/UL (4.8-10.8)
--- NOTE | 2019-08-30 20:30 | NUR ---
ED Nurse Note: chief business officer Schwartz # [id number] and partner are at pt bedside
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
[2019-08-30 20:44] LABS: APPEARANCE,URINE CLEAR; BILIRUBIN, URINE NEGATIVE (NEGATIVE); COLOR,URINE PALE YELLOW; GLUCOSE, URINE (UA) NEGATIVE (NEGATIVE); KETONES,URINE NEGATIVE (NEGATIVE); LEUKOCYTE ESTERASE ,URINE NEGATIVE (NEGATIVE); NITRITE,URINE NEGATIVE (NEGATIVE); PH,URINE 5 (4.5-8.0); PROTEIN,URINE NEGATIVE (NEGATIVE); UROBILINOGEN,URINE NORMAL MG/DL (0.0-1.0)
[2019-08-30 20:46] LABS: ANION GAP 10 mmol/L (5-15); BLOOD UREA NITROGEN 11 mg/dL (7-18); CALCIUM 8.3 MG/DL (8.5-10.1); CARBON DIOXIDE 28 MMOL/L (21-32); CHLORIDE 105 MMOL/L (98-107); CREATININE 1.3 MG/DL (0.55-1.30); POTASSIUM 3.4 MMOL/L (3.5-5.1); SODIUM 143 MMOL/L (136-145)
[2019-08-30 20:52] LABS: ALANINE AMINOTRANSFERASE 34 U/L (12-78); ALBUMIN 4.2 G/DL (3.4-5.0); ALKALINE PHOSPHATASE 64 U/L (46-116); ASPARTATE AMINO TRANSFERASE 32 U/L (15-37); BILIRUBIN,TOTAL 0.3 MG/DL (0.2-1.0)
[2019-08-30] MEDS ORDERED: CEPHALEXIN500 MG ORAL (21:20)
[2019-08-30] MEDS ORDERED: ceFAZolin 1gm/50ml Premix 50 ML IV ONE (21:30)
[2019-08-30] MEDS ORDERED: BACITRACIN ZIN1 EACH TOPIC (21:36)
[2019-08-30] MEDS ORDERED: Bacitracin Oint UD TOPIC ONE (21:45)
[2019-08-30] MEDS ORDERED: Morphine Sulfate 2mg/ml Inj(IV/IM USE ONLY) IVP ONE (21:45)
[2019-08-30 22:05] VITALS: BP 140/96
--- NOTE | 2019-08-30 22:05 | NUR ---
ER DISCHARGE NOTE: Patient is cleared to be discharged per ERMD, wound has been cleaned, bacitracin ointment applied. pt tolerated procedure well. pt is aox4, on room air, with stable vital signs. pt and significant other were given dc and prescription instructions both were able to verbalize understanding of teachings. pt id band and iv site removed without complications. pt is able to ambulate with steady gait. pt took all belongings.
== END 2019-08-30 22:05 | disposition home or self-care (01) ==
LOC: EMR 20:53
DX: S11.81XA Laceration without foreign body of other specified part of neck, initial encounter (principal); F14.10 Cocaine abuse, uncomplicated; J45.909 Unspecified asthma, uncomplicated; X99.1XXA Assault by knife, initial encounter; Y93.9 Activity, unspecified; Y92.9 Unspecified place or not applicable
CPT/HCPCS: 36415; 70498; 71045; 80053; 80307; 81003; 85025; 85610; 85730; 86850; 86900; 86901; 90471; 90715; 93005; 96374; 96375; 99284; G0480; J0690; J2270; J2405; Q9967

== ENCOUNTER 2019-12-17 18:58 | Emergency (ER) | payer BC ==
[~2019-12-17] VITALS: Ht 182.9 cm; Wt 77.1 kg
[~2019-12-17 18:58] MED LIST changes: +BACITRACIN ZIN1 EACH TOPIC; +CEPHALEXIN500 MG ORAL
[2019-12-17 19:25] VITALS: BP 129/78
--- NOTE | 2019-12-17 19:39 | Emergency Room Report ---
History of Present Illness General Chief Complaint: Abdominal Pain Source: Patient Present Illness HPI Patient is a 34-year-old male who presents after increased epigastric pain. Patient reports having onset of pain over the past 3 days. Reports having increased nausea and vomiting. Denies any hematemesis or bloody stools. Recent had increased diarrhea. Reports having previous history of heavy alcohol drinking and states he stopped drinking approximate 3 days ago. Denies any shakiness or tremulousness. Denies any fever. Had not been having any cough. Allergies: Coded Allergies: No Known Allergies (Unverified , 09/06/16) COVID-19 Screening Contact w/high risk pt: No Recent Travel to affected area: No Experienced COVID-19 symptoms?: No Patient History Past Medical History: see triage record Reviewed Nursing Documentation: PMH: Agreed; PSxH: Agreed Nursing Documentation-PMH Past Medical History: No History, Except For Hx Asthma: Yes - Bronchitis, Pneumonia Hx Gastrointestinal Problems: Yes - GERD Review of Systems All Other Systems: negative except mentioned in HPI Physical Exam Vital Signs Date Time Temp Pulse Resp B/P (MAP) Pulse Ox O2 Delivery O2 Flow Rate FiO2 12/17/19 19:03 97.9 79 18 129/78 (95) 99 Room Air Sp02 EP Interpretation: reviewed, normal General Appearance: normal inspection, well appearing, no apparent distress, alert, GCS 15 Head: atraumatic ENT: normal ENT inspection, hearing grossly normal, normal voice Neck: normal inspection, full range of motion, supple, no bony tend Respiratory: normal inspection, lungs clear, normal breath sounds, no respiratory distress, no retraction, no wheezing Cardiovascular #1: regular rate, rhythm, no edema Gastrointestinal: normal inspection, normal bowel sounds, non tender, soft, no guarding, no hernia Genitourinary: no CVA tenderness Musculoskeletal: normal inspection, back normal, normal range of motion Neurologic: alert, motor strength/tone normal, general manager oracle data cloud III-XII nml as tested, oriented x3, responsive, speech normal, normal inspection Psychiatric: normal inspection, judgement/insight normal, mood/affect normal Medical Decision Making ER Course Patient presented for abdominal pain. Differential diagnosis include was not limited to gastroenteritis, pancreatitis, alcohol use gastritis among others. Because of complexity of patient's case laboratory tests and imaging studies were ordered. Patient was noted to have some prior history of alcohol abuse and does not appear to be in evidence of alcohol withdrawal at this time. Patient states he does not smoke marijuana daily but does smoke occasionally. Patient does not appear to be in any significant distress however laboratory testing was ordered due to patient's complaint of persistent vomiting he was tried on IV fluids as well as IV antiemetics and acid blockers. Last Vital Signs Date Time Temp Pulse Resp B/P (MAP) Pulse Ox O2 Delivery O2 Flow Rate FiO2 12/17/19 19:03 97.9 79 18 129/78 (95) 99 Room Air Referrals: NOT CHOSEN IPA/,REFERRING (PCP) Thomas Griffin MD December 17, 2019 19:39
[2019-12-17] MEDS ORDERED: Dicyclomine HCl 10mg/5ml oral soln ORAL ONE (19:45)
[2019-12-17] MEDS ORDERED: Lidocaine 2% Visc 15ml soln ORAL ONE (19:45)
[2019-12-17] MEDS ORDERED: Mylanta II UD 30ml ORAL ONE (19:45)
[2019-12-17 20:11] LABS: APPEARANCE,URINE CLOUDY; BASOPHILS % (AUTO) 1.1 % (0.0-2.0); BILIRUBIN, URINE NEGATIVE (NEGATIVE); EOSINOPHILS % (AUTO) 2.1 % (0.0-3.0); GLUCOSE, URINE (UA) NEGATIVE (NEGATIVE); HEMATOCRIT 45.5 % (42.0-52.0); HEMOGLOBIN 14.6 G/DL (14.2-18.0); KETONES,URINE NEGATIVE (NEGATIVE); LEUKOCYTE ESTERASE ,URINE NEGATIVE (NEGATIVE); LYMPHOCYTES % (AUTO) 17.8 % (20.0-45.0); MEAN CORPUSCULAR VOLUME 95 FL (80-99); MONOCYTES % (AUTO) 7.9 % (1.0-10.0); NEUTROPHILS % (AUTO) 71.1 % (45.0-75.0); NITRITE,URINE NEGATIVE (NEGATIVE); PH,URINE 7 (4.5-8.0); PLATELET COUNT 272 K/UL (150-450); PROTEIN,URINE NEGATIVE (NEGATIVE); RED BLOOD COUNT 4.77 M/UL (4.70-6.10); RED CELL DISTRIBUTION WIDTH 12.7 % (11.6-14.8); UROBILINOGEN,URINE NORMAL MG/DL (0.0-1.0); WHITE BLOOD COUNT 6.1 K/UL (4.8-10.8)
[2019-12-17 20:12] LABS: COLOR,URINE YELLOW
[2019-12-17 20:23] LABS: ANION GAP 9 mmol/L (5-15); BLOOD UREA NITROGEN 8 mg/dL (7-18); CALCIUM 9.3 MG/DL (8.5-10.1); CARBON DIOXIDE 30 MMOL/L (21-32); CHLORIDE 104 MMOL/L (98-107); CREATININE 1.3 MG/DL (0.55-1.30); POTASSIUM 3.8 MMOL/L (3.5-5.1); SODIUM 142 MMOL/L (136-145)
[2019-12-17 20:27] LABS: ALANINE AMINOTRANSFERASE 26 U/L (12-78); ALBUMIN 3.9 G/DL (3.4-5.0); ALBUMIN/GLOBULIN RATIO 1.1 (1.0-2.7); ALKALINE PHOSPHATASE 64 U/L (46-116); ASPARTATE AMINO TRANSFERASE 18 U/L (15-37); BILIRUBIN,TOTAL 0.3 MG/DL (0.2-1.0)
[2019-12-17] MEDS ORDERED: ONDANSETRON ODT4 MG BC (20:41)
[2019-12-17] MEDS ORDERED: PRILOSEC OTC20 MG ORAL (20:41)
[2019-12-17 20:50] VITALS: BP 118/89
== END 2019-12-17 20:50 | disposition home or self-care (01) ==
LOC: EMR 19:25
DX: R10.13 Epigastric pain (principal); R11.2 Nausea with vomiting, unspecified; R19.7 Diarrhea, unspecified; K21.9 Gastro-esophageal reflux disease without esophagitis
CPT/HCPCS: 36415; 80053; 81003; 83690; 85025; 96361; 96374; 96375; 99284; J2405; J7030; S0028